=== PATIENT | female | born 1980 | race Two or more races ===

== ENCOUNTER → 2019-11-27 | Outpatient (CLI) | payer OTHER ==
--- NOTE | 2019-11-27 10:12 | US ---
EXAMINATION TYPE: US abdomen limited DATE OF EXAM: 11/27/2019 COMPARISON: NONE CLINICAL HISTORY: R16.0 Hepatomegaly, not elsewhere classified. abnormal labs EXAM MEASUREMENTS: Liver Length: 14.6 cm Gallbladder Wall: 0.1 cm CBD: 0.6 cm Right Kidney: 10.1 x 3.9 x 3.4 cm Pancreas: wnl Liver: wnl Gallbladder: wnl Evidence for sonographic Moss's sign: neg CBD: wnl Right Kidney: No hydronephrosis or masses seen Visualized pancreas is unremarkable. Visualized liver slightly heterogeneous without worrisome mass o r ductal dilatation. Gallbladder is seen without shadowing mobile gallstones. Liver size measures nor mal. No surrounding ascites. Right kidney shows no hydronephrosis. IMPRESSION: No worrisome intrahepatic mass or intrahepatic ductal dilatation.
== END | disposition home or self-care (01) ==
LOC: RADUSWWP 09:27 → EDBD 09:40
PROVIDERS: ATTEND Internal Medicine Rheumatology
DX: R16.0 Hepatomegaly, not elsewhere classified (principal)
CPT/HCPCS: 76705

== ENCOUNTER → 2022-04-19 | Outpatient (CLI) | payer OTHER | END | disposition home or self-care (01) | LOC: LABWHC1 09:05 | PROVIDERS: ATTEND Physician Assistant | DX: G35 Multiple sclerosis (principal) | CPT/HCPCS: 36415; 82040; 82042; 82784; 83916 ==